=== PATIENT | male | born 1955 | race African-American/Black ===

== ENCOUNTER 2016-08-11 19:07 | Emergency (ER) | payer OTHER ==
[~2016-08-11] VITALS: Ht 188 cm; Wt 99.8 kg
[~2016-08-11 19:07] MED LIST: NKM; UNOBMED
--- NOTE | 2016-08-11 19:14 | Emergency Room Report ---
History of Present Illness General Chief Complaint: Altered Level of Consciousness Source: EMS Present Illness HPI Patient is a 61-year-old male presented after increased altered level consciousness. Patient had multiple prior visits for alcohol intoxication. The patient was brought in by EMS. Patient noted have unclear onset. History is limited by patient's poor cooperation. Allergies: Coded Allergies: No Known Allergies (Unverified , 12/05/15) Patient History Reviewed Nursing Documentation: PMH: Agreed, PSxH: Agreed Review of Systems All Other Systems: limited - by mental status Physical Exam Vital Signs Date Time Temp Pulse Resp B/P Pulse Ox O2 Delivery O2 Flow Rate FiO2 08/11/16 19:04 98.1 100 16 160/107 97 Room Air General Appearance: well appearing, no apparent distress Head: normocephalic, atraumatic ENT: hearing grossly normal, normal voice Neck: full range of motion, supple Respiratory: no respiratory distress, speaking full sentences Cardiovascular #1: normal peripheral pulses, regular rate, rhythm Gastrointestinal: normal inspection, soft Musculoskeletal: normal inspection, no calf tenderness Neurologic: normal inspection, alert, responsive, 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 Differential diagnosis included but was not limited to ischemic stroke, subarachnoid hemorrhage, hypoglycemia, spinal cord injury, neurodegenerative disorder, urinary tract infection, hypoxemia.Patient was noted to have initially confused mental status. Patient had gradual improvement of neurologic status. At the time of discharge the patient was alert and ambulatory without assistance and had a good plan for self care. Patient declined placement. Patient was advised to stop drinking alcohol. And to followup with outpatient therapy for alcohol treatment.Patient is advised followup with [facility]. The patient is advised to return for any concerns. Last Vital Signs Date Time Temp Pulse Resp B/P Pulse Ox O2 Delivery O2 Flow Rate FiO2 08/11/16 19:04 98.1 100 16 160/107 97 Room Air Status: improved Disposition: HOME, SELF-CARE Condition: Stable Poncho Diamond Aug 11, 2016 19:14
[2016-08-11 19:23] VITALS: BP 160/107
[2016-08-11 21:29] VITALS: BP 143/78
[2016-08-11 21:30] VITALS: BP 143/78
--- NOTE | 2016-08-13 09:34 | Diagnostic Imaging Report ---
Indication: Chest pain Technique: XRAY CHEST 1 V Comparison: 12/05/15 Findings: Cardiomedial still silhouette is stable. There is no consolidation or pleural effusion. Degenerative changes of the spine are noted. Impression: No acute cardiopulmonary disease.
== END 2016-08-11 21:42 | disposition home or self-care (01) ==
LOC: EDBD 19:07 → EMR 19:21
DX: F10.129 Alcohol abuse with intoxication, unspecified (principal)
CPT/HCPCS: 71010; 99284

== ENCOUNTER 2018-01-17 17:44 | Emergency (ER) | payer OTHER ==
[~2018-01-17] VITALS: Ht 177.8 cm; Wt 79.4 kg
[2018-01-17] MEDS ORDERED: Acetaminophen 500mg (ES) tab PO ONE (18:00)
[2018-01-17 18:45] LABS: BASOPHILS % (AUTO) 2.4 % (0.0-2.0); EOSINOPHILS % (AUTO) 3.2 % (0.0-3.0); HEMATOCRIT 29.8 % (42.0-52.0); HEMOGLOBIN 9.2 G/DL (14.2-18.0); LYMPHOCYTES % (AUTO) 33.9 % (20.0-45.0); MEAN CORPUSCULAR VOLUME 84 FL (80-99); NEUTROPHILS % (AUTO) 47.6 % (45.0-75.0); PLATELET COUNT 145 K/UL (150-450); RED BLOOD COUNT 3.53 M/UL (4.70-6.10); RED CELL DISTRIBUTION WIDTH 22.4 % (11.6-14.8); WHITE BLOOD COUNT 5.9 K/UL (4.8-10.8)
[2018-01-17 18:59] LABS: ANION GAP 8 mmol/L (5-15); BLOOD UREA NITROGEN 5 mg/dL (7-18); CALCIUM 8.2 MG/DL (8.5-10.1); CARBON DIOXIDE 22 MMOL/L (21-32); CHLORIDE 109 MMOL/L (98-107); INR 1.3 (0.9-1.1); POTASSIUM 4.5 MMOL/L (3.5-5.1); SODIUM 139 MMOL/L (136-145)
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
[2018-01-17 19:09] LABS: ALANINE AMINOTRANSFERASE 40 U/L (12-78); ALBUMIN 2.4 G/DL (3.4-5.0); ALBUMIN/GLOBULIN RATIO 0.4 (1.0-2.7); ALKALINE PHOSPHATASE 291 U/L (46-116); ASPARTATE AMINO TRANSFERASE 140 U/L (15-37)
--- NOTE | 2018-01-17 19:37 | Diagnostic Imaging Report ---
EXAM: CT Maxillofacial Without Intravenous Contrast CLINICAL HISTORY: TRAUMA TECHNIQUE: Axial computed tomography images of the face without intravenous contrast. CTDI is 28.19 mGy and DLP is 639.94 mGy-cm. One or more of the following dose reduction techniques were used: automated exposure control, adjustment of the mA and/or kV according to patient size, use of iterative reconstruction technique. COMPARISON: No relevant prior studies available. FINDINGS: Bones/joints: No acute fracture. Soft tissues: Dermal calcifications or debris. Orbits: Unremarkable. Sinuses: No acute sinusitis. Dental: Dental related disease. IMPRESSION: No acute fracture.
[2018-01-17 20:09] LABS: APPEARANCE,URINE CLEAR; BILIRUBIN, URINE NEGATIVE (NEGATIVE); GLUCOSE, URINE (UA) NEGATIVE (NEGATIVE); KETONES,URINE NEGATIVE (NEGATIVE); LEUKOCYTE ESTERASE ,URINE NEGATIVE (NEGATIVE); NITRITE,URINE NEGATIVE (NEGATIVE); PH,URINE 6 (4.5-8.0); PROTEIN,URINE NEGATIVE (NEGATIVE); UROBILINOGEN,URINE 1 MG/DL (0.0-1.0)
[2018-01-17 20:12] LABS: COLOR,URINE YELLOW
[2018-01-17 21:12] VITALS: BP 142/68
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
[2018-01-17] MEDS ORDERED: TYLENOL325 MG ORAL (21:21)
[2018-01-17] MEDS ORDERED: IBUPROFEN600 MG ORAL (21:21)
[2018-01-17 21:48] VITALS: BP 142/68
== END 2018-01-17 21:48 | disposition home or self-care (01) ==
LOC: EDBD 17:44 → EMR 18:52
DX: M25.552 Pain in left hip (principal); S00.33XA Contusion of nose, initial encounter; D50.9 Iron deficiency anemia, unspecified; F10.929 Alcohol use, unspecified with intoxication, unspecified; Y90.8 Blood alcohol level of 240 mg/100 ml or more; I10 Essential (primary) hypertension; F17.200 Nicotine dependence, unspecified, uncomplicated; W18.30XA Fall on same level, unspecified, initial encounter; Y92.9 Unspecified place or not applicable
CPT/HCPCS: 36415; 70450; 70486; 72170; 80053; 80307; 80329; 81001; 85025; 85610; 85730; 96360; 96361; 96374; 99284

== ENCOUNTER 2018-02-09 16:05 | Emergency (ER) | payer OTHER ==
[~2018-02-09] VITALS: Ht 177.8 cm; Wt 77.1 kg
[~2018-02-09 16:05] MED LIST changes: +IBUPROFEN600 MG ORAL; +TYLENOL325 MG ORAL
[2018-02-09 16:08] VITALS: BP 139/74
--- NOTE | 2018-02-09 18:40 | Emergency Room Report ---
History of Present Illness General Chief Complaint: Alcohol Intoxication Source: Patient Present Illness HPI The patient is a 62-year-old male brought in by ambulance for suppose it alcohol intoxication. The patient was found laying down and was complaining of shoulder pain. Unsure if the patient fell. He does not provide useful information at this time Allergies: Coded Allergies: No Known Allergies (Unverified , 12/05/15) Patient History Past Medical History: see triage record Pertinent Family History: none Social History: Reports: alcohol use Reviewed Nursing Documentation: PMH: Agreed; PSxH: Agreed Nursing Documentation-PMH Past Medical History: No History, Except For Hx Hypertension: Yes Review of Systems All Other Systems: limited Physical Exam Vital Signs Date Time Temp Pulse Resp B/P (MAP) Pulse Ox O2 Delivery O2 Flow Rate FiO2 02/09/18 15:51 88 16 139/74 98 02/09/18 16:08 98.0 98.0 Sp02 EP Interpretation: reviewed, normal General Appearance: no apparent distress, alert, GCS 15, non-toxic Head: normocephalic, atraumatic Eyes: bilateral eye normal inspection, bilateral eye PERRL ENT: hearing grossly normal, normal pharynx, no angioedema, normal voice Neck: full range of motion, supple, no bony tend, supple/symm/no masses, other - in C collar Respiratory: chest non-tender, lungs clear, normal breath sounds, speaking full sentences Cardiovascular #1: regular rate, rhythm, no edema Musculoskeletal: back normal, gait/station normal, normal range of motion, non- tender Neurologic: alert, responsive, motor strength/tone normal, sensory intact, other - fatigue Psychiatric: judgement/insight normal, mood/affect normal, no suicidal/ homicidal ideation Skin: normal color, no rash, warm/dry, well hydrated Lymphatic: no adenopathy Medical Decision Making PA Attestation Dr. Pryor is my supervising physician. Patient management was discussed with my supervising physician Diagnostic Impression: Primary Impression: Acute alcoholic intoxication Qualified Codes: F10.929 - Alcohol use, unspecified with intoxication, unspecified ER Course The patient is a 62-year-old male brought in by ambulance for suppose it alcohol intoxication. DDx considered but not limited to: acute alcohol intoxication, fracture, dislocation, concussion, ICH, among others PE: vitals WNL. NAD Pt is alert to physical stimuli. Otherwise, he sleeps Head is NC/AT. No raccoon eyes or avila sign. Neck: In C collar. No midline tenderness or step-offs. RRR. Lungs CTA bilat L shoulder: No deformity. Full AROM intact. Imaging of head, neck, and shoulder are all unremarkable for acute findings The patient is given time to rest in the emergency department. He has requested a sandwich and water. Upon reexamination several hours later, patient is more alert and states that he is ready to be discharged. He is KS'ed in stable condition. ER precautions given Other X-Ray Diagnostic Results Other X-Ray Diagnostic Results : X-Ray ordered: L shoulder # of Views/Limited Vs Complete: 3 View Indication: Pain EP Interpretation: Yes PA Xray: Interpretation reviewed, by supervising MD, and agrees with findings. Interpretation: no dislocation, no soft tissue swelling, no fractures Impression: No acute disease Electronically Signed by: Fish Urbnao PA-C CT/MRI/US Diagnostic Results CT/MRI/US Diagnostic Results #1: Imaging Test Ordered: CT head Impression No acute findings CT/MRI/US Diagnostic Results #2: Imaging Test Ordered: CT C spine Impression No acute findings Last Vital Signs Date Time Temp Pulse Resp B/P (MAP) Pulse Ox O2 Delivery O2 Flow Rate FiO2 02/09/18 16:08 98.0 88 16 139/74 98 98.0 Status: improved Disposition: HOME, SELF-CARE Condition: Improved Referrals: [facility],REFERR[facility] (PCP) FISH URBANO Feb 09, 2018 18:40
[2018-02-09 19:24] VITALS: BP 139/74
--- NOTE | 2018-02-11 08:24 | Diagnostic Imaging Report ---
Indication: Reason For Exam: FALL Technique: 3 views of the left shoulder Comparison: none Findings: No acute fractures. No dislocations. The joint spaces are preserved Impression: Negative This agrees with the preliminary interpretation provided overnight by [facility].
--- NOTE | 2018-02-11 08:43 | Diagnostic Imaging Report ---
Indication: Reason For Exam: FALL Technique: spiral acquisitions obtained through the brain. Angled axial and coronal 5 x 5 mm slices were reconstructed. No IV contrast utilized. Radiation dose was minimized using automated exposure control Total dose length product 1361.93 mGycm. CTDIvol(s) 70.38 mGy Comparison: 01/17/2018 FINDINGS: No acute hemorrhage or edema. No mass effect or midline shift. There is age-related enlargement of the ventricles and extra axial CSF spaces. There is periventricular deep white matter ischemic change. Normal colón-white differentiation. Visualized orbits are unremarkable. Visualized sinuses are unremarkable. Intact calvarium. There is a small focus of encephalomalacia in the anterior left frontal lobe. No significant interim change IMPRESSION: Chronic and age-related changes. 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 The CT scanner at [facility] is accredited by the [employer] and the scans are performed using protocols designed to limit radiation exposure to as low as reasonably achievable to attain images of sufficient resolution adequate for diagnostic evaluation
--- NOTE | 2018-02-11 08:49 | Diagnostic Imaging Report ---
Indication: Pain, status post fall Technique: Spiral acquisitions obtained through the cervical spine. No IV contrast utilized. Multiplanar reconstructions were generated. Total dose length product 517.22 mGycm. CTDIvol(s) 21.65 mGy. Dose reduction achieved using automated exposure control. Comparison: none Findings: Exam is somewhat limited due to patient motion artifact. Per technologist, patient unable hold still. No acute fractures. No dislocations. Normal bony alignment. No prevertebral soft tissue swelling. Vertebral body heights are preserved. There is mild facet arthrosis at C2-3 on the right and at C7-T1 on the right. At C2-3, there is borderline narrowing of the spinal canal, predominantly due to short pedicles, with contribution by mild posterior disc bulge and osteophyte formation. The neural foramina are preserved. At C3-4, there is mild degenerative disc narrowing. There is broad-based posterior disc protrusion which results in borderline narrowing of the spinal canal, exacerbated by short pedicles.. There is severe neural foraminal stenosis bilaterally. At C4-5, there is mild degenerative disc narrowing. Short pedicles result in borderline narrowing of the spinal canal. There is severe bilateral neural foraminal stenosis At C5-6, the disc space is preserved. No significant disc bulge or protrusion or spinal stenosis. There is moderate bilateral neural foraminal stenosis. At C6-7, there is mild degenerative disc narrowing. No significant disc bulge or protrusion or spinal stenosis. There is moderate to severe right and mild to moderate left neural foraminal stenosis. At C7-T1, no significant disc bulge or protrusion, spinal stenosis, or neural foraminal stenosis. The included extraspinal soft tissues are unremarkable. The upper aerodigestive tract is unremarkable. Impression: No acute bony trauma Multilevel degenerative changes, as detailed on a level by level basis above This agrees with the preliminary interpretation provided overnight by [facility]. The CT scanner at [facility] is accredited by the [employer] and the scans are performed using protocols designed to limit radiation exposure to as low as reasonably achievable to attain images of sufficient resolution adequate for diagnostic evaluation.
== END 2018-02-09 19:24 | disposition home or self-care (01) ==
LOC: EDSEX 16:05 → EDBD 16:05 → EMR 16:30
DX: F10.929 Alcohol use, unspecified with intoxication, unspecified (principal)
CPT/HCPCS: 70450; 72125; 99284

== ENCOUNTER 2019-01-24 07:33 | Emergency (ER) | payer OTHER ==
[~2019-01-24] VITALS: Ht 182.9 cm; Wt 81.6 kg
[2019-01-24 07:37] VITALS: BP 174/114
--- NOTE | 2019-01-24 07:37 | NUR ---
ED Nurse Note: Pt brought in by EMS from [facility] due to bilateral shoulder pain x 4 days. Pt was seen here at [facility] yesterday for the same symptom and was discharged. Pt now states that he fell today. AAO x4, follows commands. No respiratory distress. Skin is hot to touch oral temp 101.2 F. 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
--- NOTE | 2019-01-24 08:06 | Emergency Room Report ---
History of Present Illness General Chief Complaint: General Complaint Source: Patient Present Illness HPI Patient initially presents with complaints of shoulder pain Patient was brought in by paramedics from [place] Upon arrival the patient was found to have a high fever as well patient is a poor historian has had several visits here previously with alcohol intoxication He does admit to drinking alcohol today as well Denies any chest pain He does remain a fairly poor historian cannot provide appropriate input History of present illness remains limited secondary to that patient appears to be homeless and disheveled Does have increased cough at bedside here Allergies: Coded Allergies: No Known Allergies (Unverified , 12/05/15) Patient History Limited by: medical condition Past Medical History: see triage record Reviewed Nursing Documentation: PMH: Agreed; PSxH: Agreed Nursing Documentation-PMH Past Medical History: No Stated History Hx Hypertension: Yes Review of Systems All Other Systems: limited - Other than the ones mentioned in the history of present illness all others are reviewed however they do stay limited due to the patient's mental status Physical Exam Vital Signs Date Time Temp Pulse Resp B/P (MAP) Pulse Ox O2 Delivery O2 Flow Rate FiO2 01/24/19 07:27 103.1 126 18 169/103 (125) 98 Room Air Sp02 EP Interpretation: reviewed, normal General Appearance: mild distress - Appears disheveled Head: normocephalic, atraumatic Eyes: bilateral eye PERRL, bilateral eye EOMI ENT: dry mucus membranes Neck: supple Respiratory: no retraction, no accessory muscle use, crackles - Bilaterally Cardiovascular #1: tachycardia Gastrointestinal: non tender, soft Musculoskeletal: normal inspection Neurologic: alert, responsive Skin: other - Poor skin turgor Lymphatic: no adenopathy Medical Decision Making Diagnostic Impression: Primary Impression: Sepsis Additional Impression: Cholecystitis ER Course Multiple differentials and consideration Patient presents febrile raising concern of infectious pathology Patient's x-ray did not show any obvious acute findings CT imaging was done which showed some inflammation An enlarged finding of the gallbladder Raising concern of possible cholecystitis Patient has done significantly better blood pressure at this time remains elevated and patient was given medication for heart rate and blood pressure Further medically stabilized for transfer secondary to insurance request Labs Test 01/24/19 07:35 01/24/19 08:15 01/24/19 10:19 Urine Color Yellow Urine Appearance Clear Urine pH 6 (4.5-8.0) Urine Specific [place] 1.010 (1.005-1.035) Urine Protein 1+ (NEGATIVE) Urine Glucose (UA) Negative (NEGATIVE) Urine Ketones Negative (NEGATIVE) Urine Blood 1+ (NEGATIVE) Urine Nitrite Negative (NEGATIVE) Urine Bilirubin Negative (NEGATIVE) Urine Urobilinogen 8 MG/DL (0.0-1.0) Urine Leukocyte Esterase 1+ (NEGATIVE) Urine RBC 0-2 /HPF (0 - 0) Urine WBC 2-4 /HPF (0 - 0) Urine Squamous Epithelial Cells Occasional /LPF Urine Bacteria Few /HPF (NONE) Urine Opiates Screen Negative (NEGATIVE) Urine Barbiturates Screen Negative (NEGATIVE) Phencyclidine (PCP) Screen Negative (NEGATIVE) Urine Amphetamines Screen Negative (NEGATIVE) Urine Benzodiazepines Screen Positive (NEGATIVE) Urine Cocaine Screen Negative (NEGATIVE) Urine Marijuana (THC) Screen Negative (NEGATIVE) White Blood Count 13.9 K/UL (4.8-10.8) Red Blood Count 3.01 M/UL (4.70-6.10) Hemoglobin 7.9 G/DL (14.2-18.0) Hematocrit 26.8 % (42.0-52.0) Mean Corpuscular Volume 89 FL (80-99) Mean Corpuscular Hemoglobin 26.3 PG (27.0-31.0) Mean Corpuscular Hemoglobin Concent 29.6 G/DL (32.0-36.0) Red Cell Distribution Width 22.1 % (11.6-14.8) Platelet Count 173 K/UL (150-450) Mean Platelet Volume 8.7 FL (6.5-10.1) Neutrophils (%) (Auto) % (45.0-75.0) Lymphocytes (%) (Auto) % (20.0-45.0) Monocytes (%) (Auto) % (1.0-10.0) Eosinophils (%) (Auto) % (0.0-3.0) Basophils (%) (Auto) % (0.0-2.0) Differential Total Cells Counted 100 Neutrophils % (Manual) 73 % (45-75) Lymphocytes % (Manual) 8 % (20-45) Monocytes % (Manual) 15 % (1-10) Eosinophils % (Manual) 1 % (0-3) Basophils % (Manual) 0 % (0-2) Band Neutrophils 3 % (0-8) Platelet Estimate Adequate Platelet Morphology Normal Polychromasia 1+ Hypochromasia 1+ Anisocytosis 2+ Sodium Level 134 MMOL/L (136-145) Potassium Level 4.1 MMOL/L (3.5-5.1) Chloride Level 102 MMOL/L (98-107) Carbon Dioxide Level 18 MMOL/L (21-32) Anion Gap 14 mmol/L (5-15) Blood Urea Nitrogen 11 mg/dL (7-18) Creatinine 0.9 MG/DL (0.55-1.30) Estimat Glomerular Filtration Rate > 60 mL/min (>60) Glucose Level 87 MG/DL (74-106) Lactic Acid Level 4.70 mmol/L (0.4-2.0) 1.80 mmol/L (0.66-2.22) Calcium Level 8.7 MG/DL (8.5-10.1) Total Bilirubin 2.2 MG/DL (0.2-1.0) Direct Bilirubin 1.5 MG/DL (0.0-0.3) Aspartate Amino Transf (AST/SGOT) 103 U/L (15-37) Alanine Aminotransferase (ALT/SGPT) 43 U/L (12-78) Alkaline Phosphatase 236 U/L (46-116) Total Creatine Kinase 207 U/L (26-308) Creatine Kinase MB 1.4 NG/ML (0.0-3.6) Creatine Kinase MB Relative Index 0.6 Troponin I 0.028 ng/mL (0.000-0.056) Pro-B-Type Natriuretic Peptide 368 pg/mL (0-125) Total Protein 9.6 G/DL (6.4-8.2) Albumin 2.9 G/DL (3.4-5.0) Globulin 6.7 g/dL Albumin/Globulin Ratio 0.4 (1.0-2.7) Lipase 70 U/L (73-393) Serum Alcohol 57 mg/dL EKG Diagnostic Results Rate: tachycardiac Rhythm: other ST Segments: other - ST changes, T wave changes Rhythm Strip Diag. Results EP Interpretation: yes Rate: 110 Rhythm: no PVC's, no ectopy, other - Sinus tach Chest X-Ray Diagnostic Results Chest X-Ray Diagnostic Results : Chest X-Ray Ordered: Yes # of Views/Limited/Complete: 1 View Indication: Chest Pain EP Interpretation: Yes Interpretation: no consolidation, no effusion, no pneumothorax Impression: No acute disease Electronically Signed by: Alex Hernandez DO CT/MRI/US Diagnostic Results CT/MRI/US Diagnostic Results : Impression CT abdomen pelvisIMPRESSION: 1. Diffusely distended gallbladder, with possible subtle layering sludge or noncalcified stones. No ductal dilatation. No adjacent inflammatory stranding. Recommend further evaluation with right upper quadrant ultrasound. 2. Scattered medullary densities throughout bilateral kidneys, which may suggest medullary nephrocalcinosis and/or tiny nonobstructive stones. 3. Mild wall thickening in the sigmoid colon, which may be related to underdistention or less likely mild colitis. No adjacent inflammatory stranding. 4. Mild urinary bladder wall thickening. No radiodense luminal stones. Recommend correlation with urinalysis to exclude cystitis. 5. Mildly nodular hepatic contour, which may suggest cirrhosis. 6. Splenomegaly, with a diameter of 13.7 cm. 7. Simple-appearing left renal cortical cysts, largest measuring 2.5 cm in the left upper renal pole. Last Vital Signs Date Time Temp Pulse Resp B/P (MAP) Pulse Ox O2 Delivery O2 Flow Rate FiO2 01/24/19 07:37 101.2 123 15 174/114 99 Room Air Status: improved Disposition: XFER SHT-TRM HOSP Condition: Serious Alex Hernandez DO Jan 24, 2019 08:06
--- NOTE | 2019-01-24 08:19 | NUR ---
ED Nurse Note: Collected blood/urine then sent.
--- NOTE | 2019-01-24 08:33 | Diagnostic Imaging Report ---
EXAM: XR Chest, 1 View CLINICAL HISTORY: Chest pain TECHNIQUE: Frontal view of the chest. COMPARISON: Chest x-rays dated 08/11/16 FINDINGS: Lungs: Unremarkable. The lungs appear clear. No focal consolidation. Pleural space: Unremarkable. The costophrenic angles are sharp. No visible pneumothorax. Heart: Unremarkable. No cardiomegaly. Mediastinum: Unremarkable. Bones/joints: Osseous remodeling along the right proximal humerus, likely sequelae of remote trauma. Vasculature: Atherosclerotic calcifications are noted within the aortic arch. Tubes, lines and devices: Telemetry leads overlie the thorax. IMPRESSION: 1. No radiographic evidence of acute cardiopulmonary disease. 2. Osseous remodeling along the right proximal humerus, likely sequelae of remote trauma.
[2019-01-24 08:35] LABS: APPEARANCE,URINE CLEAR; BILIRUBIN, URINE NEGATIVE (NEGATIVE); GLUCOSE, URINE (UA) NEGATIVE (NEGATIVE); KETONES,URINE NEGATIVE (NEGATIVE); LEUKOCYTE ESTERASE ,URINE 1+ (NEGATIVE); NITRITE,URINE NEGATIVE (NEGATIVE); PH,URINE 6 (4.5-8.0); PROTEIN,URINE 1+ (NEGATIVE); UROBILINOGEN,URINE 8 MG/DL (0.0-1.0)
[2019-01-24 08:36] LABS: COLOR,URINE YELLOW
[2019-01-24 08:42] LABS: HEMATOCRIT 26.8 % (42.0-52.0); HEMOGLOBIN 7.9 G/DL (14.2-18.0); MEAN CORPUSCULAR VOLUME 89 FL (80-99); PLATELET COUNT 173 K/UL (150-450); RED BLOOD COUNT 3.01 M/UL (4.70-6.10); RED CELL DISTRIBUTION WIDTH 22.1 % (11.6-14.8); WHITE BLOOD COUNT 13.9 K/UL (4.8-10.8)
[2019-01-24 09:01] LABS: ANION GAP 14 mmol/L (5-15); BLOOD UREA NITROGEN 11 mg/dL (7-18); CALCIUM 8.7 MG/DL (8.5-10.1); CARBON DIOXIDE 18 MMOL/L (21-32); CHLORIDE 102 MMOL/L (98-107); CREATININE 0.9 MG/DL (0.55-1.30); POTASSIUM 4.1 MMOL/L (3.5-5.1); SODIUM 134 MMOL/L (136-145)
[2019-01-24 09:14] LABS: ALANINE AMINOTRANSFERASE 43 U/L (12-78); ALBUMIN 2.9 G/DL (3.4-5.0); ALBUMIN/GLOBULIN RATIO 0.4 (1.0-2.7); ALKALINE PHOSPHATASE 236 U/L (46-116); ASPARTATE AMINO TRANSFERASE 103 U/L (15-37); BILIRUBIN,TOTAL 2.2 MG/DL (0.2-1.0); CKMB 1.4 NG/ML (0.0-3.6); CREATINE KINASE 207 U/L (26-308)
[2019-01-24] MEDS ORDERED: Vancomycin 1.5 GM in NS 275 ML IVPB ONE (09:15)
[2019-01-24] MEDS ORDERED: cefTRIAXone 1 GM in NS 55 ML IVPB ONE (09:15)
[2019-01-24 09:16] LABS: BILIRUBIN,DIRECT 1.5 MG/DL (0.0-0.3)
--- NOTE | 2019-01-24 09:25 | NUR ---
ED Nurse Note: Pt taken to CT.
[2019-01-24 09:30] VITALS: BP 175/100
--- NOTE | 2019-01-24 10:10 | Diagnostic Imaging Report ---
EXAM: CT Abdomen and Pelvis Without Intravenous Contrast CLINICAL HISTORY: PAIN TECHNIQUE: Axial computed tomography images of the abdomen and pelvis without intravenous contrast. Sagittal and coronal reformatted images were created and reviewed. CTDI is 18.40 mGy and DLP is 1145 mGy-cm. One or more of the following dose reduction techniques were used: automated exposure control, adjustment of the mA and/or kV according to patient size, use of iterative reconstruction technique. COMPARISON: No relevant prior studies available. FINDINGS: Lung bases: Mild dependent atelectasis in bilateral lung bases. ABDOMEN: Liver: Mildly nodular hepatic contour, which may suggest cirrhosis. Gallbladder and bile ducts: Diffusely distended gallbladder, with possible subtle layering sludge or noncalcified stones. No ductal dilatation. No adjacent inflammatory stranding. Pancreas: Unremarkable. No ductal dilation. Spleen: Enlarged, with a diameter of 13.7 cm. Adrenals: Unremarkable. No mass. Kidneys and ureters: Scattered medullary densities throughout bilateral kidneys, which may suggest medullary nephrocalcinosis and/or tiny nonobstructive stones. Simple-appearing left renal cortical cysts, largest measuring 2.5 cm in the left upper renal pole. No perinephric stranding. No hydronephrosis or hydroureter. Stomach and bowel: Mild wall thickening in the sigmoid colon, which may be related to underdistention or less likely mild colitis. No adjacent inflammatory stranding. Remainder of the colon appears unremarkable. No abnormally distended loops of small bowel. GE junction and stomach appear unremarkable. PELVIS: Appendix: No findings to suggest acute appendicitis. Bladder: Mild urinary bladder wall thickening. No radiodense luminal stones. Reproductive: Unremarkable as visualized. ABDOMEN and PELVIS: Intraperitoneal space: Unremarkable. No free air. No significant fluid collection. Bones/joints: Numerous chronic healed left lateral rib fractures. No acute fracture. No dislocation. Soft tissues: Unremarkable. Vasculature: Unremarkable. No abdominal aortic aneurysm. Lymph nodes: Unremarkable. No enlarged lymph nodes. IMPRESSION: 1. Diffusely distended gallbladder, with possible subtle layering sludge or noncalcified stones. No ductal dilatation. No adjacent inflammatory stranding. Recommend further evaluation with right upper quadrant ultrasound. 2. Scattered medullary densities throughout bilateral kidneys, which may suggest medullary nephrocalcinosis and/or tiny nonobstructive stones. 3. Mild wall thickening in the sigmoid colon, which may be related to underdistention or less likely mild colitis. No adjacent inflammatory stranding. 4. Mild urinary bladder wall thickening. No radiodense luminal stones. Recommend correlation with urinalysis to exclude cystitis. 5. Mildly nodular hepatic contour, which may suggest cirrhosis. 6. Splenomegaly, with a diameter of 13.7 cm. 7. Simple-appearing left renal cortical cysts, largest measuring 2.5 cm in the left upper renal pole.
[2019-01-24 11:35] VITALS: BP 172/90
--- NOTE | 2019-01-24 11:36 | NUR ---
ED Nurse Note: Report given to Elizabeth FLORES of [facility] and JUAN F harley. Belongings sent with him.
[2019-01-24] MEDS ORDERED: Labetalol 5mg/ml 20ml vial IV ONE (11:45)
[2019-01-24 11:49] VITALS: BP 180/90
--- NOTE | 2019-01-25 08:39 | NUR ---
ED Nurse Note: FAXED THE BLOOD CULTURE RESULT TO [facility]
--- NOTE | 2019-01-27 11:14 | Cardiology Report ---
APPROVED REPORT EKG Measurement Heart [id number] N[address] abnormality Abnormal ECG
== END 2019-01-24 12:47 | disposition short-term general hospital (02) ==
LOC: EDBD 07:33 → EMR 08:38
DX: A41.9 Sepsis, unspecified organism (principal); K81.9 Cholecystitis, unspecified; R16.1 Splenomegaly, not elsewhere classified; N28.1 Cyst of kidney, acquired; R07.9 Chest pain, unspecified
CPT/HCPCS: 36415; 71045; 74176; 80053; 80307; 80329; 81003; 82248; 82550; 82553; 83605; 83690; 83880; 84484; 85007; 85025; 87040; 87081; 87181; 93005; 96361; 96365; 96367; 96375; 99285; J0696; J3370; J7050